=== PATIENT | male | born 1990 | race Hispanic/Latino ===

== ENCOUNTER 2021-08-01 22:28 | Emergency (ER) | payer OTHER ==
[~2021-08-01] VITALS: Ht 170.2 cm; Wt 88.9 kg
[2021-08-01] MEDS ORDERED: IBUPROFEN 600 MG TAB PO STA (22:46)
[2021-08-01] MEDS ORDERED: IBUPROFEN 600 MG TAB ONE (23:00)
== END 2021-08-02 00:17 | disposition home or self-care (01) ==
LOC: ER 22:35
DX: S50.01XA Contusion of right elbow, initial encounter (principal); W01.0XXA Fall on same level from slipping, tripping and stumbling without subsequent striking against object, initial encounter; Y93.66 Activity, soccer; Y92.322 Soccer field as the place of occurrence of the external cause
CPT/HCPCS: 99283